=== PATIENT | female | born 1990 | race Caucasian/White ===

== ENCOUNTER 2016-06-04 00:56 | Emergency (ER) | payer OTHER ==
[~2016-06-04] VITALS: Ht 172.7 cm; Wt 68.0 kg
[2016-06-04] MEDS ORDERED: VIBRAMYCIN100 MG PO (02:32)
[2016-06-04] MEDS ORDERED: ULTRAM50 M1 PO (02:32)
[2016-06-04] MEDS ORDERED: IBUPROFEN600 M1 PO (02:32)
--- NOTE | 2016-06-04 02:34 | ED SKIN/ALLERGY COMPLAINT ---
History of Present Illness General Chief Complaint: Skin Rash/ Abcess Stated Complaint: ? ABCESS TO BUTTOCKS PER PT Source: patient, old records Exam Limitations: no limitations Vital Signs & Intake/Output Vital Signs & Intake/Output Vital Signs Date Time Temp Pulse Resp B/P Pulse O2 O2 Flow FiO2 Ox Delivery Rate 06/04 0116 97.8 94 18 125/77 97 Room Air Allergies Coded Allergies: NO KNOWN ALLERGIES (04/27/15) Triage Note: PT TO TRIAGE C/O ?ABCESS ON BOTTOM. PT STATES SHE HAS HAD 4 OF THEM OVER THE PAST YEAR, HAS BEEN PUT ON ANTIBIOTICS FOR THEM BUT "THEY JUST KEEP COMING BACK". PT STATES SHE WAS TAKING BACTRIM A MONTH AGO FOR SAME PROBLEM. THIS STARTED ON TUESDAY. Triage Nurses Notes Reviewed? yes Onset: Just prior to arrival Duration: day(s):, better, constant, continues in ED Timing: recent history Severity: moderate Location: left gluteus No Modifying Factors: none Associated Symptoms: change in skin texture, rash, swelling/mass/lumps LMP (ages 10-50): unknown : No Patient currently breastfeeds: No HPI: 4 days prior to admission patient complains of left gluteal pain secondary to likely recurrent abscess that is now draining. She denies fever chills nausea vomiting diarrhea abdominal pain chest pain shortness breath headache dysuria bleeding. Past History Travel History Traveled to [place] past 21 day No Medical History Any Pertinent Medical History? see below for history Neurological: NONE EENT: NONE Cardiovascular: NONE Respiratory: NONE Gastrointestinal: NONE Hepatic: NONE Renal: NONE Musculoskeletal: NONE Psychiatric: NONE Endocrine: NONE Blood Disorders: NONE Cancer(s): NONE RAILWAYS ASSISTANT/Reproductive: NONE Other Medical Hx: Genital herpes Surgical History Surgical History: N Psychosocial History What is your primary language Urdu Tobacco Use: Current Daily Use Daily Tobacco Use Amount/Type: => 5 Cigarettes daily Family History Hx Contributory? No Review of Systems Review of Systems Constitutional: Reports: no symptoms. EENTM: Reports: no symptoms. Respiratory: Reports: no symptoms. Cardiovascular: Reports: no symptoms. GI: Reports: no symptoms. Genitourinary: Reports: no symptoms. Musculoskeletal: Reports: no symptoms. Skin: Reports: see HPI, rash. Neurological/Psychological: Reports: no symptoms. Hematologic/Endocrine: Reports: no symptoms. Immunologic/Allergic: Reports: no symptoms. All Other Systems: Reviewed and Negative Physical Exam Physical Exam General Appearance: well developed/nourished, mild distress Head: atraumatic Eyes: Bilateral: PERRL, EOMI. Ears, Nose, Throat: normal pharynx, normal ENT inspection, hearing grossly normal Neck: normal inspection, supple Respiratory: normal breath sounds Cardiovascular: regular rate/rhythm Peripheral Pulses: 4+ carotid (R), 4+ carotid (L) Gastrointestinal: soft, non-tender Back: normal inspection Extremities: normal inspection, normal range of motion, no edema Neurologic/Psych: awake, alert, oriented x 3, normal mood/affect Reflexes: 2+: bicep (R), bicep (L). Skin: intact, warm/dry, rash Skin Problem Location: left mid gluteus Skin Problem Character: abcess, swelling, tenderness, thickening Lymphatic: no anterior cervical bertha Progress Differential Diagnosis: abscess/cellulitis, allergic reaction Plan of Care: Current Medications Sig/Magaly Start time Last Medication Dose Stop Time Status Admin Doxycycline Hyclate 100 MG ONCE ONE 06/04 229 UNVr (Vibramycin) 06/04 230 Ibuprofen 800 MG ONCE ONE 06/04 229 UNVr (Motrin) 06/04 230 Departure Departure Time of Disposition: 230 Disposition: HOME OR SELF CARE Condition: Stable Clinical Impression Primary Impression: Abscess, gluteal, left Referrals: SASHA RAMIREZ,PIETER Barr Call for surgical follow up Departure Forms: Customer Survey General Discharge Information Prescriptions: Current Visit Scripts Doxycycline Hyclate (Vibramycin) 1 CAP PO BID #20 CAP Ibuprofen 1 TAB PO Q6PRN PRN pain #50 TAB with food Tramadol HCl (Ultram) 1-2 TAB PO Q6PRN PRN severe pain #30 TAB
[2016-06-04 02:54] VITALS: BP 128/79
== END 2016-06-04 02:54 ==
LOC: ERH 00:56
DX: L02.31 Cutaneous abscess of buttock (principal)